=== PATIENT | male | born 1975 | race Caucasian/White ===

== ENCOUNTER 2016-12-15 12:04 | Emergency (ER) | payer OTHER ==
[~2016-12-15] VITALS: Ht 180.3 cm; Wt 76.3 kg
[2016-12-15 12:05] VITALS: BP 139/82
[2016-12-15] MEDS ORDERED: KETOROLAC 30 MG/1 ML ONE (12:47)
[2016-12-15] MEDS ORDERED: DIAZEPAM 5 MG TABLET ONE (12:47)
[2016-12-15] MEDS ORDERED: KETOROLAC 30 MG/1 ML IM ONE (13:00)
[2016-12-15] MEDS ORDERED: DIAZEPAM 5 MG TABLET PO ONE (13:00)
[2016-12-15] MEDS ORDERED: BACITRACIN ZINC OINT 500U/GM, 0.9 GM ONE (15:30)
== END 2016-12-15 14:55 | disposition home or self-care (01) ==
LOC: ED 14:00
DX: S16.1XXA Strain of muscle, fascia and tendon at neck level, initial encounter (principal); X58.XXXA Exposure to other specified factors, initial encounter; Y93.89 Activity, other specified; Y92.89 Other specified places as the place of occurrence of the external cause; Y99.9 Unspecified external cause status
CPT/HCPCS: 72050; 93005; 96372; 99284; J1885